=== PATIENT | male | born 2000 | race African-American/Black ===

== ENCOUNTER 2025-02-23 04:20 | Emergency (ER) | payer BC ==
[~2025-02-23] VITALS: Ht 182.9 cm; Wt 68.0 kg
[2025-02-23 04:52] LABS: BASOPHILS % (AUTO) 0.3 % (0.0-2.0); EOSINOPHILS # (AUTO) 0.1 K/uL (0.0-0.7); EOSINOPHILS % (AUTO) 1.9 % (0.0-7.0); HEMATOCRIT 45.3 % (36.7-47.1); HEMOGLOBIN 14.9 g/dL (12.5-16.3); LYMPHOCYTES # (AUTO) 3.1 K/uL (0.8-4.8); LYMPHOCYTES % (AUTO) 65.6 % (20.5-51.5); MEAN CORPUSCULAR HEMOGLOBIN 28.2 uug (23.8-33.4); MEAN CORPUSCULAR HGB CONC 33 g/dL (32.5-36.3); MEAN CORPUSCULAR VOLUME 85.8 fL (73.0-96.2); MONOCYTES # (AUTO) 0.4 K/uL (0.1-1.30); MONOCYTES % (AUTO) 9.3 % (0.0-11.0); NEUTROPHILS # (AUTO) 1.1 K/uL (1.8-8.9); NEUTROPHILS % (AUTO) 22.9 % (38.5-71.5); PLATELET COUNT (AUTO) 275 K/uL (152-348); RED BLOOD CELL COUNT(AUTO) 5.28 MIL/uL (4.06-5.63); RED CELL DISTRIBUTION WIDTH 16.4 % (12.1-16.2); WHITE BLOOD COUNT (AUTO) 4.7 K/uL (3.6-10.2)
[2025-02-23 04:55] LABS: DIFFERENTIAL COMMENT 1
[2025-02-23 04:59] LABS: CREATININE 0.9 mg/dL (0.6-1.3)
[2025-02-23] MEDS ORDERED: ONDANSETRON 4 MG/2 ML VIAL ONE (05:00)
[2025-02-23] MEDS ORDERED: FAMOTIDINE. 20 MG/2 ML VIAL IV ONE (05:00)
[2025-02-23 05:04] LABS: ALBUMIN 4.5 g/dL (3.4-5.0); BILIRUBIN,DIRECT 0.1 mg/dL (0.0-0.2); BILIRUBIN,TOTAL 0.3 mg/dL (0.2-1.0); TOTAL PROTEIN, SERUM 8.8 g/dL (6.4-8.2)
[2025-02-23] MEDS: IV NORMAL SALINE 1000 ML BAG IV ONE (05:04)
[2025-02-23] MEDS: ONDANSETRON 4 MG/2 ML VIAL IV ONE (05:04)
[2025-02-23] MEDS: FAMOTIDINE. 20 MG/2 ML VIAL IV ONE (05:04)
[2025-02-23] MEDS ORDERED: ACETAMINOPHEN 500 MG TABLET ONE (05:54)
[2025-02-23] MEDS ORDERED: hydrOXYzine HCL 25 MG TABLET ONE (05:55)
[2025-02-23] MEDS: hydrOXYzine HCL 25 MG TABLET PO ONE (05:58)
[2025-02-23] MEDS: ACETAMINOPHEN 500 MG TABLET PO ONE (05:58)
[2025-02-23] MEDS ORDERED: LORA0.5T48 PO (06:43)
[2025-02-23 09:25] VITALS: BP 119/63; TEMP 98; O2SAT 99
== END 2025-02-23 09:10 | disposition home or self-care (01) ==
LOC: ER 04:25
DX: R41.82 Altered mental status, unspecified (principal); F10.129 Alcohol abuse with intoxication, unspecified; G43.909 Migraine, unspecified, not intractable, without status migrainosus; R10.11 Right upper quadrant pain; R10.13 Epigastric pain; Z87.19 Personal history of other diseases of the digestive system; Z86.59 Personal history of other mental and behavioral disorders; Y90.5 Blood alcohol level of 100-119 mg/100 ml
CPT/HCPCS: 80076; 80048; 83690; 85025; 36415; 70450; 74176; 99285; 96361; 96374; 96375; 80320; J1308; J2405; J7040; A4606; A4663; A9150; G0480